=== PATIENT | male | born 2000 | race Caucasian/White ===

== ENCOUNTER 2021-06-04 01:29 | Emergency (ER) | payer MEDICAID ==
[~2021-06-04] VITALS: Ht 165.1 cm; Wt 82.0 kg
[2021-06-04] MEDS ORDERED: FENTANYL CITRATE/PF 50MCG/ML 2ML VIAL IV ONE (02:15)
[2021-06-04] MEDS ORDERED: PROPOFOL 200MG/20ML VIAL IV ONE (02:15)
[2021-06-04] MEDS ORDERED: SODIUM CHLORIDE 0.9% 1,000 ML IV ONE (02:15)
[2021-06-04] MEDS ORDERED: ONDANSETRON HCL 4MG/2ML INJ IV ONE ×2 (03:00→03:30)
[2021-06-04] MEDS ORDERED: KETAMINE HCL 50 MG/ML 10ML IV ONE (03:30)
[2021-06-04] MEDS ORDERED: IBUP-2029 MT (05:11)
[2021-06-04 05:30] VITALS: BP 135/78
== END 2021-06-04 05:46 | disposition home or self-care (01) ==
LOC: ER 01:29
DX: S53.105A Unspecified dislocation of left ulnohumeral joint, initial encounter (principal); V49.40XA Driver injured in collision with unspecified motor vehicles in traffic accident, initial encounter; Y93.89 Activity, other specified; Y92.89 Other specified places as the place of occurrence of the external cause; Y99.8 Other external cause status
CPT/HCPCS: 24600; 73070; 73080; 73090; 96361; 96374; 99152; 99285; J2405; J2704; J3010; J3490; J7030